=== PATIENT | male | born 1950 ===

== ENCOUNTER 2018-04-08 07:10 | Day surgery (SDC) | payer OTHER | END 2018-04-08 14:25 | disposition home or self-care (01) | LOC: AMB-ENDOS 07:10 | DX: D12.3 Benign neoplasm of transverse colon (principal); K64.1 Second degree hemorrhoids ==

== ENCOUNTER 2018-04-27 13:00 | Inpatient (IN) | payer OTHER ==
[~2018-04-27] VITALS: Ht 170.2 cm; Wt 88.5 kg
[2018-04-27] MEDS ORDERED: ZANTAC150 MG PO (15:00)
[2018-04-27] MEDS ORDERED: ZANAFLEX2 MG PO (15:00)
[2018-04-27] MEDS ORDERED: PROTONIX20 MG PO (15:01)
== END 2018-05-12 19:29 | disposition home or self-care (01) | DRG 331 ==
LOC: O/R 05-03 05:15 → SURH 05-03 05:15
PROVIDERS: Colon & Rectal Surgery
PROC: 07TC4ZZ Resection of Pelvis Lymphatic, Percutaneous Endoscopic Approach (ICD-10-PCS; 2018-05-03)
PROC: 0DJD8ZZ Inspection of Lower Intestinal Tract, Via Natural or Artificial Opening Endoscopic (ICD-10-PCS; 2018-05-03)
PROC: 0DTL4ZZ Resection of Transverse Colon, Percutaneous Endoscopic Approach (ICD-10-PCS; principal; 2018-05-03 16:30)
PROC: BW25ZZZ Computerized Tomography (CT Scan) of Chest, Abdomen and Pelvis (ICD-10-PCS; 2018-05-08)
DX: C18.4 Malignant neoplasm of transverse colon (principal); Z78.1 Physical restraint status; M10.021 Idiopathic gout, right elbow

== ENCOUNTER 2019-05-19 05:38 | Day surgery (SDC) | payer OTHER ==
[~2019-05-19 05:38] MED LIST: PROTONIX20 MG PO; ZANAFLEX2 MG PO; ZANTAC150 MG PO
== END 2019-05-19 10:15 | disposition home or self-care (01) ==
LOC: AMB-ENDOS 05:38
DX: K64.2 Third degree hemorrhoids (principal)